=== PATIENT | female | born 1940 | race Caucasian/White ===

== ENCOUNTER 2023-11-09 08:23 | Emergency (ER) | payer MEDICARE ==
[~2023-11-09] VITALS: Ht 149.9 cm; Wt 56.6 kg
[~2023-11-09 08:23] MED LIST: AUGMENTIN875TAB PO; BABY ASPIRIN81 MG PO; CALTRAT1 PO; CIPROFLOXACN500 MG PO; FISH OIL1000 MG PO; MELOXICAM7.5 MG PO; MSM1500 MG PO; MULTIVITAM10 OR; SUPER BIOTIN5000 MC1 PO; TRAMADOL HCL50 MG PO; TRIAMCINOLON0.11 EX; VITAMIN D2000 UNIT OR; ZOCOR10 MG PO; ZYRTEC10 MG PO
[2023-11-09 08:30] VITALS: BP 179/72
[2023-11-09 08:59] LABS: BASO% 0.3 % (0-3); EOS% 1.4 % (0-8); HEMATOCRIT 41.4 % (37.0-47.0); HEMOGLOBIN 13.2 g/dl (12.0-16.0); IMMATURE GRANULOCYTES 0.9 % (0.0-5.0); MEAN CELL VOLUME 91.4 fL CALC (80.0-100.0); MEAN CORPUSCULAR HGB 29.1 pG CALC (26.0-32.0); MEAN CORPUSCULAR HGB CONC 31.9 g/dL CAL (32.0-36.0); MONO% 6.1 % (2-13); NEUT# 4.19 thou/uL (2.00-7.15); NEUT% 31.6 % (42-76); RED BLOOD COUNT 4.53 mill/uL (4.20-5.60); RED CELL DISTRI WIDTH 16.6 % (11.5-15.5)
[2023-11-09 09:12] LABS: ALBUMIN 3.7 g/dL (3.2-5.0); ALKALINE PHOSPHATASE 46 u/l (38-126); ANION GAP 7 (6-22 (CALC)); BILIRUBIN, TOTAL 0.5 mg/dL (0.02-1.3); BUN 15 mg/dL (8-23); BUN/CREATININE RATIO 17 (12-20 (CALC)); CARBON DIOXIDE 26 mmol/l (22-30); CHLORIDE 109 mmol/l (95-108); CREATININE 0.9 mg/dL (0.5-1.0); GFR FOR AFR.AMER. > 60 ML/MIN (>=60 (CALC)); GFR OTHER RACES 60 ML/MIN (>=60 (CALC)); POTASSIUM 4.4 mmol/l (3.5-5.1); SGOT/AST 27 u/l (9-36); SODIUM 138 mmol/l (137-146); TOTAL PROTEIN 5.8 g/dL (6.3-8.2)
[2023-11-09 09:25] LABS: LYMPH% 59.7 % (15-41)
[2023-11-09 09:59] VITALS: BP 179/72
== END 2023-11-09 10:08 | disposition home or self-care (01) ==
LOC: ED 08:23
PROVIDERS: Emergency Medicine
DX: M19.09 Primary osteoarthritis, other specified site (principal); M25.512 Pain in left shoulder; M25.511 Pain in right shoulder